=== PATIENT | male | born 1995 | race Caucasian/White ===

== ENCOUNTER 2020-08-07 14:59 | Outpatient (CLI) | payer BC ==
[~2020-08-07 14:59] MED LIST: Iopamidol 370 76% 100 ML VIAL ONE
--- NOTE | 2020-08-07 15:55 | CT ---
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 Patient reports that it has bee n "therefore a long time" TECHNIQUE: Axial CT imaging at 3 mm intervals from vertex through skull base with IV contrast. Chun l and sagittal reformatted imaging obtained. FINDINGS: The visualized paranasal sinuses and mastoid air cells are well-aerated. There is no displa eda calvarial fracture. There is a focal area of prominent calvarial thickening measuring 1.9 cm in transverse dimension and 4.3 cm in craniocaudal dimension, superior to and posterior to the left ear as per the provided clinical history. The inner table appears normal while the cortex of the outer table in this region a ppears focally thickened. No aggressive periosteal reaction or evidence for a soft tissue component. Evaluation for intracranial hemorrhage is limited with postcontrast imaging. No midline shift or mass effect. No ventricular enlargement. IMPRESSION: Focal area of dense sclerosis and calvarial thickening, primarily involving the outer tab le on the left as detailed above. This may be the sequela of remote hemorrhage, such as a subgaleal hemorrhage or a cephalohematoma as an infant which went on to ossify. The sequela of a remote calvari al fracture is a possibility.
== END 2020-08-07 15:00 | disposition home or self-care (01) ==
LOC: BICCT 14:59
PROVIDERS: ATTEND Family Medicine
DX: M89.9 Disorder of bone, unspecified (principal)
CPT/HCPCS: 70460; Q9967

== ENCOUNTER 2022-07-25 21:08 | Emergency (ER) | payer BC ==
[~2022-07-25 21:08] MED LIST changes: -Iopamidol 370 76% 100 ML VIAL ONE; +Iopamidol-370 76% 500 ML 1 ML ONE
[2022-07-25 22:05] LABS: Hemoglobin 16.6 g/dL (14.0-18.0); Mean Corpuscular HGB CONC 34.8 g/dL (32.0-36.0); Mean Corpuscular Hemoglobin 30.5 pg (27.0-31.0); Mean Corpuscular Volume 87.6 fl (78.0-98.0); Platelet Count 267 10x3/uL (130-400); RBC Distribution Width 11.9 % (11.5-14.5); Red Blood Cell (RBC) Count 5.46 mill/uL (4.70-6.10); White Blood Cell (WBC) Count 5.1 10x3/uL (4.8-10.8)
[2022-07-25] MEDS ORDERED: Morphine 4 MG/ML VIAL ONE (22:16)
[2022-07-25] MEDS ORDERED: Clindamycin/D5W 600 mg/50 ml Premix Bag ONE (22:17)
[2022-07-25] MEDS ORDERED: Dexamethasone 4 mg/ml Vial ONE ×3 (22:17→22:26)
[2022-07-25] MEDS ORDERED: Ondansetron PF 4 MG/2 ML Vial ONE (22:17)
[2022-07-25 22:23] LABS: Band 15 % (5-11); Lymphocytes 14 % (21-51); MDiff Complete? YES; Metamyelocyte 1 % (0-0); Monocytes 20 % (0-10); Neutrophil 50 % (42-75); Toxic Granulation SLIGHT
[2022-07-25 22:33] LABS: ALT (SGPT) 13 U/L (8-55); AST (SGOT) 14 U/L (5-34); Albumin 4.4 g/dL (3.5-5.0); Alkaline Phosphatase 53 U/L (40-110); Anion Gap 18 mmol/L (10-20); BUN (Urea Nitrogen) 13 mg/dL (8.9-20.6); Bilirubin, Total 0.7 mg/dL (0.2-1.2); Calc. Creatinine Clearance 0 mL/min (70-130); Carbon Dioxide 24 mmol/L (22-29); Chloride 99 mmol/L (98-107); Estimated GFR 123; Globulin 3.9 g/dL (2.4-3.5); Glucose 120 mg/dL (70-105); Potassium 4.2 mmol/L (3.5-5.1); Protein, Total 8.3 g/dL (6.0-8.3); Sodium 137 mmol/L (136-145)
[2022-07-25 23:33] LABS: Calcium 9.7 mg/dL (7.8-10.44)
[2022-07-26] MEDS ORDERED: Ondansetron PF 4 MG/2 ML Vial ONE (02:09)
[2022-07-26] MEDS ORDERED: Morphine 4 MG/ML VIAL ONE (02:09)
[2022-07-26] MEDS ORDERED: Iopamidol-370 76% 500 ML 1 ML ONE (10:20)
== END 2022-07-26 04:50 | disposition home or self-care (01) ==
LOC: ERS 21:08
DX: J36 Peritonsillar abscess (principal)
CPT/HCPCS: 36415; 70491; 70498; 80053; 85025; 96374; 96375; J1100; J2270; J2405; J3490; Q9967

== ENCOUNTER 2022-07-28 02:41 | Emergency (ER) | payer BC, SELFPAY ==
[2022-07-28] MEDS ORDERED: Dexamethasone 10 MG/ML VIAL ONE ×2 (03:23→08:28)
[2022-07-28] MEDS ORDERED: Morphine 4 MG/ML VIAL ONE ×2 (03:23→06:23)
[2022-07-28] MEDS ORDERED: Ampicillin/Sulbactam 3 GM in Sodium Chloride 0.9% 100 ML IVPB SCH (03:30)
[2022-07-28 04:27] LABS: Hemoglobin 14.9 g/dL (14.0-18.0); Mean Corpuscular HGB CONC 34.3 g/dL (32.0-36.0); Mean Corpuscular Hemoglobin 30.5 pg (27.0-31.0); Mean Corpuscular Volume 88.8 fl (78.0-98.0); Mean Platelet Volume 7.4 fL (7.4-10.4); Platelet Count 262 10x3/uL (130-400); RBC Distribution Width 12.1 % (11.5-14.5)
[2022-07-28 04:44] LABS: ALT (SGPT) 20 U/L (8-55); AST (SGOT) 17 U/L (5-34); Albumin 3.5 g/dL (3.5-5.0); Alkaline Phosphatase 62 U/L (40-110); Anion Gap 14 mmol/L (10-20); BUN (Urea Nitrogen) 11 mg/dL (8.9-20.6); Bilirubin, Total 0.6 mg/dL (0.2-1.2); Calc. Creatinine Clearance 0 mL/min (70-130); Calcium 9.2 mg/dL (7.8-10.44); Carbon Dioxide 28 mmol/L (22-29); Chloride 101 mmol/L (98-107); Estimated GFR 124; Globulin 3.7 g/dL (2.4-3.5); Glucose 104 mg/dL (70-105); Potassium 3.5 mmol/L (3.5-5.1); Protein, Total 7.2 g/dL (6.0-8.3); Sodium 139 mmol/L (136-145)
[2022-07-28 05:04] LABS: Band 5 % (5-11); Lymphocytes 26 % (21-51); MDiff Complete? YES; Monocytes 15 % (0-10); Neutrophil 54 % (42-75)
[2022-07-28] MEDS ORDERED: Ketorolac Tromethamine 30 MG/ML VIAL ONE (05:15)
[2022-07-28] MEDS ORDERED: Lidocaine 1% w/Epinephrine 1:100K 20 ML VIAL ONE (08:31)
[2022-07-28] MEDS ORDERED: Iopamidol 370 76% 100 ML VIAL ONE (08:58)
== END 2022-07-28 11:05 | disposition home or self-care (01) ==
LOC: ERS 02:41
DX: J36 Peritonsillar abscess (principal)
CPT/HCPCS: 70492; 80053; 85025; 86140; 96365; 96375; 96376; J0295; J1100; J1885; J2270; J3490; Q9967

== ENCOUNTER 2023-04-10 07:04 | Emergency (ER) | payer SELFPAY ==
[2023-04-10] MEDS ORDERED: Acetaminophen 500 MG TAB ONE (07:44)
[2023-04-10] MEDS ORDERED: Ibuprofen 800 MG TAB ONE (07:44)
[2023-04-10] MEDS ORDERED: Ondansetron ODT 4 MG TAB ONE (07:45)
[2023-04-10] MEDS ORDERED: Ondansetron PF 4 MG/2 ML Vial ONE (08:49)
[2023-04-10] MEDS ORDERED: Dexamethasone 10 MG/ML VIAL ONE (08:49)
== END 2023-04-10 12:02 | disposition home or self-care (01) ==
LOC: ERS 07:04
DX: J02.9 Acute pharyngitis, unspecified (principal); B34.9 Viral infection, unspecified
CPT/HCPCS: 71045; 87081; 87430; 96361; 96374; 96375; J1100; J2405; Q0162